=== PATIENT | male | born 1985 | race Two or more races ===

== ENCOUNTER 2024-09-20 10:34 | Outpatient (CLI) | payer OTHER ==
[2024-09-20 13:35] LABS: Urine Protein, UAD Negative (Negative)
== END 2024-09-20 17:00 | disposition home or self-care (01) ==
LOC: LAB 10:34
PROVIDERS: ATTEND Urology
DX: N39.0 Urinary tract infection, site not specified (principal)
CPT/HCPCS: 81001; 87086